=== PATIENT | female | born 1975 | race Caucasian/White ===

== ENCOUNTER 2016-07-12 20:50 | Emergency (ER) | payer BC ==
--- NOTE | 2016-07-17 15:07 | ER ---
ADMIT: 07/12/2016 RM/LOC: ER [facility] MR#: [id number] [address] [facility] [address] [place], [place] [id number] BREANNE JORGENSEN [address] [place] [address] Emergency Room Report SEX: F AGE: 41 : 1975 DATE: 07/12/2016 HISTORY OF PRESENT ILLNESS: The patient is a 41-year-old female, presents to emergency room complaining of abdominal pain for 3 weeks. She said it worsened yesterday. Today, she was planting some roblero. 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 She has multiple abdominal surgeries including appendectomy, cholecystectomy, and she has had adhesions. She is concerned that she may be having some problem at this time with adhesions. REVIEW OF SYSTEMS: Negative otherwise. MEDICATIONS: See T-sheet. ALLERGIES: CODEINE. PHYSICAL EXAMINATION: ABDOMEN: Very localized right lower quadrant abdominal pain. No guarding or rebound. VITAL SIGNS: Within normal limits. She is slightly tachycardic between 100 to 110 heart rate. She is afebrile. Ultrasound of pelvis shows a 3.9 fibroid in the fundus of the uterus. Ovaries are within normal limits. UA normal, and urine test is negative. CLINICAL IMPRESSION: Fibroid right lower quadrant abdominal pain. Given ketorolac shot and prescription for home use and encouraged to follow up with primary provider. GREGORY Nye / Shun Joshi MD / nick JOB #: [id number] CC: Shun Joshi MD, Attending Physician Jerome Winston MD, Family Physician
== END 2016-07-12 23:02 | disposition home or self-care (01) ==
LOC: ER 20:50
DX: D25.9 Leiomyoma of uterus, unspecified (principal); Z90.49 Acquired absence of other specified parts of digestive tract; Z88.5 Allergy status to narcotic agent